=== PATIENT | female | born 1995 | race Caucasian/White ===

== ENCOUNTER 2017-10-05 10:01 | Emergency (ER) | payer OTHER ==
[~2017-10-05] VITALS: Ht 162.6 cm; Wt 70.3 kg
[2017-10-05 10:17] VITALS: Ht 162.6 cm; Wt 70.3 kg
[2017-10-05 11:02] VITALS: BP 115/81
== END 2017-10-05 11:02 | disposition home or self-care (01) ==
LOC: ED 10:01
DX: S39.012A Strain of muscle, fascia and tendon of lower back, initial encounter (principal); W18.39XA Other fall on same level, initial encounter; Y93.41 Activity, dancing; Y92.89 Other specified places as the place of occurrence of the external cause; Y99.8 Other external cause status

== ENCOUNTER 2018-11-24 17:14 | Inpatient (IN) | payer MEDICAID ==
[~2018-11-24] VITALS: Ht 162.6 cm; Wt 74.9 kg
[2018-11-24 17:26] VITALS: Ht 162.6 cm; Wt 74.9 kg
[2018-11-24 18:37] LABS: PLATELET COUNT 230 x10^3mcL (130-400); RED CELL DISTRIBUTION WIDTH 13.9 % (11.5-14.5)
[2018-11-24 18:43] LABS: CALCIUM 8.7 mg/dL (8.5-10.1); CARBON DIOXIDE 26.1 mmol/L (21-32); CHLORIDE SERUM 101 mmol/L (98-107); GFR1 > 60 mL/min; GLUCOSE SERUM 111 mg/dL (74-106); POTASSIUM SERUM 3.6 mmol/L (3.5-5.1); SODIUM SERUM 138 mmol/L (136-145)
[2018-11-24 18:46] LABS: ALBUMIN 2.9 g/dL (3.4-5.0); ALKALINE PHOSPHATASE 54 U/L (46-116); ALT/SGPT 23 U/L (14-59); AST/SGOT 17 U/L (15-37); BILIRUBIN TOTAL 0.76 mg/dL (0.20-1.00); LIPASE 75 IU/L (73-393); TOTAL PROTEIN, SERUM 7.1 g/dL (6.4-8.2)
[2018-11-24 18:56] LABS: BAND NEUTROPHIL 3 % (0-10); BASOPHIL 0 % (0-2); MONOCYTE 12 % (0-7); SEGMENTED NEUTROPHILS 81 % (37-75)
[2018-11-24 18:57] LABS: rbc morphology (normal/abnorm) NORMAL (NORMAL)
[2018-11-24 20:01] LABS: microscopic required? YES; urine erythrocyte 2+ (NEGATIVE)
[2018-11-24 22:41] VITALS: BP 105/67
[2018-11-24 22:58] LABS: T3 TOTAL 0.69 ng/mL
[2018-11-24 23:05] LABS: FREE T4 1.1 ng/dL (0.76-1.46); FREE THYROXINE INDEX 2.6 ug/dL (1.4-4.5); T4(THYROXINE) 6.5 ug/dL (4.7-13.3)
[2018-11-24 23:35] LABS: MAGNESIUM 2.1 mg/dL (1.8-2.4); PHOSPHOROUS 2.2 mg/dL (2.5-4.9)
[2018-11-24 23:39] LABS: CHOLESTEROL/HDL RATIO 1.8
[2018-11-25 04:33] VITALS: BP 120/68
[2018-11-25 06:25] LABS: BASOPHIL % 0.2 % (0-2); PLATELET COUNT 209 x10^3mcL (130-400); RED CELL DISTRIBUTION WIDTH 13.5 % (11.5-14.5)
[2018-11-25 06:31] LABS: CALCIUM 7.9 mg/dL (8.5-10.1); CARBON DIOXIDE 23.4 mmol/L (21-32); CHLORIDE SERUM 104 mmol/L (98-107); CREATININE SERUM 0.8 mg/dL (0.6-1.0); GFR1 > 60 mL/min; GLUCOSE SERUM 129 mg/dL (74-106); POTASSIUM SERUM 3.3 mmol/L (3.5-5.1); SODIUM SERUM 138 mmol/L (136-145)
[2018-11-25 09:38] VITALS: BP 103/63
[2018-11-25 17:34] VITALS: BP 95/65
[2018-11-25 20:20] VITALS: BP 101/58
[2018-11-26 05:37] VITALS: BP 106/61
[2018-11-26 06:22] LABS: BASOPHIL % 0.7 % (0-2); PLATELET COUNT 233 x10^3mcL (130-400); RED CELL DISTRIBUTION WIDTH 13.9 % (11.5-14.5)
[2018-11-26 06:44] LABS: CALCIUM 7.8 mg/dL (8.5-10.1); CARBON DIOXIDE 28.3 mmol/L (21-32); CHLORIDE SERUM 102 mmol/L (98-107); CREATININE SERUM 0.8 mg/dL (0.6-1.0); GFR1 > 60 mL/min; GLUCOSE SERUM 101 mg/dL (74-106); MAGNESIUM 1.7 mg/dL (1.8-2.4); PHOSPHOROUS 2.4 mg/dL (2.5-4.9); POTASSIUM SERUM 3.2 mmol/L (3.5-5.1); SODIUM SERUM 137 mmol/L (136-145)
[2018-11-26 09:34] VITALS: BP 91/46
[2018-11-26 16:36] VITALS: BP 102/78
[2018-11-26 20:53] VITALS: BP 104/64
[2018-11-27 06:18] VITALS: BP 109/55
[2018-11-27 06:42] LABS: BASOPHIL % 0.5 % (0-2); PLATELET COUNT 310 x10^3mcL (130-400); RED CELL DISTRIBUTION WIDTH 14.2 % (11.5-14.5)
[2018-11-27 07:31] LABS: CALCIUM 8.4 mg/dL (8.5-10.1); CARBON DIOXIDE 28.4 mmol/L (21-32); CHLORIDE SERUM 106 mmol/L (98-107); CREATININE SERUM 0.7 mg/dL (0.6-1.0); GFR1 > 60 mL/min; GLUCOSE SERUM 128 mg/dL (74-106); SODIUM SERUM 142 mmol/L (136-145)
[2018-11-27 08:04] VITALS: BP 98/60
[2018-11-27 12:17] VITALS: BP 109/67
[2018-11-27 16:29] VITALS: BP 104/63
[2018-11-27 20:48] VITALS: BP 96/81
[2018-11-28 04:57] VITALS: BP 104/67
[2018-11-28] MEDS ORDERED: LEVAQUIN750 MG PO (06:21)
[2018-11-28 07:07] LABS: PLATELET COUNT 378 x10^3mcL (130-400); RED CELL DISTRIBUTION WIDTH 13.9 % (11.5-14.5)
[2018-11-28 07:49] VITALS: BP 113/64
[2018-11-28 09:25] VITALS: BP 113/64
[2018-11-28 10:28] LABS: CALCIUM 8.3 mg/dL (8.5-10.1); CARBON DIOXIDE 29.3 mmol/L (21-32); CHLORIDE SERUM 104 mmol/L (98-107); CREATININE SERUM 0.8 mg/dL (0.6-1.0); GFR1 > 60 mL/min; GLUCOSE SERUM 116 mg/dL (74-106); POTASSIUM SERUM 3.8 mmol/L (3.5-5.1); SODIUM SERUM 140 mmol/L (136-145)
[2018-11-28 12:05] VITALS: BP 115/62
== END 2018-11-28 12:45 | disposition home or self-care (01) | DRG 463 ==
LOC: ED 17:14 → MU 21:47 → DU 21:47 → MU 22:42
PROVIDERS: Emergency Medicine; Internal Medicine; ADMIT Family Medicine
DX: N10 Acute pyelonephritis (principal); N17.0 Acute kidney failure with tubular necrosis; E44.0 Moderate protein-calorie malnutrition; E83.39 Other disorders of phosphorus metabolism; B96.29 Other Escherichia coli [E. coli] as the cause of diseases classified elsewhere; R80.9 Proteinuria, unspecified; Z68.27 Body mass index [BMI] 27.0-27.9, adult
CPT/HCPCS: 84439; 90658; J0696; J1885; J1956; J2270; J2405; J7030; Q0092

== ENCOUNTER 2019-08-12 16:22 | Emergency (ER) | payer OTHER ==
[~2019-08-12] VITALS: Ht 162.6 cm; Wt 70.3 kg
[~2019-08-12 16:22] MED LIST: LEVAQUIN750 MG PO
[2019-08-12 16:33] VITALS: BP 115/77; Ht 162.6 cm; Wt 70.3 kg
== END 2019-08-12 17:37 | disposition home or self-care (01) ==
LOC: ED 16:22
DX: J03.90 Acute tonsillitis, unspecified (principal)